=== PATIENT | male | born 1990 | race Caucasian/White ===

== ENCOUNTER 2016-08-11 15:25 | Emergency (ER) | payer BC ==
--- NOTE | 2016-08-11 16:04 | EDM.PDOC ---
ED HPI GENERAL MEDICAL PROBLEM - General Chief Complaint: Gastrointestinal Problem Stated Complaint: VOMITTING BLOOD Time Seen by Provider: 08/11/16 15:50 Source of Information: Reports: Patient History Limitations: Reports: No Limitations - History of Present Illness INITIAL COMMENTS - FREE TEXT/NARRATIVE: 25 yo male had vomiting and diarrhea this morning about 0600h. He has not had any of either since then. Thought the stuff that came up looked like dark blood. Ate pizza before bedtime which was in the middle of the night. Smokes 1/ 2 ppd and drinks on average 9 beers daily. No black or bloody stools. Has minimal abdominal pain persisting since this morning. No fever. Went to the clinic where he lives this afternoon and there were no openings so came here. Is on no regular meds. Does not recall having any substernal pain with his vomiting spell this morning. Onset: Today Onset Date: 08/11/16 Onset Time: 06:00 Duration: Hour(s):, Improving Location: Reports: Abdomen Quality: Reports: Dull Severity: Mild Improves with: Reports: Other (? 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) abdominal Pain Score (Numeric/FACES): 3 - Related Data Allergies Allergy/AdvReac Type Severity Reaction Status Date / Time No Known Allergies Allergy Verified 10/01/14 11:57 Home Meds: Home Meds Sucralfate [Carafate] 1 gm PO Q6HR #100 tab 08/11/16 [Rx] Past Medical History - Past Health History Medical/Surgical History: Denies Medical/Surgical History Other Immunologic History: MRSA Social & Family History - Family History Family Medical History: Noncontributory - Tobacco Use Smoking Status *Q: Never Smoker - Alcohol Use Days Per Week of Alcohol Use: 7 Number of Drinks Per Day: 9 Total Drinks Per Week: 63 - Recreational Drug Use Recreational Drug Use: Yes Recreational Drug Type: Reports: Cocaine, Ecstasy ED ROS GENERAL - Review of Systems Review Of Systems: See Below Constitutional: Reports: Malaise HEENT: Reports: No Symptoms Respiratory: Reports: No Symptoms Cardiovascular: Reports: No Symptoms Endocrine: Reports: No Symptoms GI/Abdominal: Reports: Abdominal Pain (mild), Diarrhea, Decreased Appetite, Hematemesis (? dark looking like blood), Nausea (no vomiting since 6 am), Vomiting. Denies: Black Stool, Bloody Stool, Constipation, Distension, Hematochezia, Stool Incontinence : Reports: No Symptoms Musculoskeletal: Reports: No Symptoms Skin: Reports: No Symptoms Neurological: Reports: No Symptoms Psychiatric: Reports: No Symptoms ED EXAM, GI/ABD - Physical Exam Exam: See Below Exam Limited By: No Limitations General Appearance: Alert, WD/WN, No Apparent Distress Eyes: Bilateral: Normal Appearance, EOMI Ears: Normal External Exam, Normal Canal, Hearing Grossly Normal, Normal TMs Nose: Normal Inspection, Normal Mucosa, No Blood Throat/Mouth: Normal Inspection, Normal Lips, Normal Oropharynx, Normal Voice, No Airway Compromise Head: Atraumatic, Normocephalic Neck: Normal Inspection, Supple Respiratory/Chest: No Respiratory Distress, Lungs Clear, Normal Breath Sounds, No Accessory Muscle Use Cardiovascular: Regular Rate, Rhythm, No Edema GI/Abdominal: Normal Bowel Sounds, Soft, No Distention, Tenderness (mild tenderness in region of McBurney's point. No epigastric pain.) Back Exam: Normal Inspection. No: CVA Tenderness (R), CVA Tenderness (L) Extremities: Normal Inspection, Normal Range of Motion, Non-Tender, No Pedal Edema Neurological: Alert, Oriented, CN II-XII Intact, No Motor/Sensory Deficits Psychiatric: Normal Affect, Normal Mood Skin Exam: Warm, Dry, Intact, Normal Color, No Rash Lymphatic: No Adenopathy Course - Vital Signs Text/Narrative:: Orthostatic vitals-borderline positive, asymptomatic with these postural changes. Maalox 30 ml po Last Recorded V/S: Last Vital Signs Temp 37.2 C 08/11/16 15:25 Pulse 100 08/11/16 15:25 Resp 16 08/11/16 15:25 BP 132/77 08/11/16 15:25 Pulse Ox 100 08/11/16 15:25 Orthostatic Blood Pressure [ 130/75 Standing] Orthostatic Blood Pressure [ 131/75 Sitting] Orthostatic Blood Pressure [ 160/90 Supine] - Orders/Labs/Meds Orders: Active Orders 24 hr Category Date Time Status Orthostatic Vital Signs [RC] ASDIRECTED Care 08/11/16 15:51 Active Labs: Laboratory Tests 08/11/16 Range/Units 16:10 WBC 6.8 (4.5-12.0) X10-3/uL RBC 5.21 (4.30-5.75) x10(6)uL Hgb 16.1 H (11.5-15.5) g/dL Hct 47.2 (30.0-51.3) % MCV 90.6 (80-96) fL MCH 30.8 (27.7-33.6) pg MCHC 34.0 (32.2-35.4) g/dL RDW 12.4 (11.5-15.5) % Plt Count 182 (125-369) X10(3)uL Meds: Medications Discontinued Medications Generic Name Dose Route Start Last Admin Trade Name Freq PRN Reason Stop Dose Admin Al Hydroxide/Mg Hydroxide 30 ml 08/11/16 16:07 08/11/16 16:23 Mag-Al Susp PO 08/11/16 16:08 30 ml NOW STA Administration Departure - Departure Time of Disposition: 16:35 Disposition: Home, Self-Care 01 Condition: fair Clinical Impression: Tobacco abuse, Alcohol abuse Gastritis Qualifiers: Gastritis type: alcoholic Chronicity: acute Gastritis bleeding: with bleeding Qualified Code(s): K29.21 - Alcoholic gastritis with bleeding - Discharge Information Prescriptions: Sucralfate [Carafate] 1 gm PO Q6HR #100 tab Forms: ED Department Discharge - My Orders Last 24 Hours: My Active Orders 08/11/16 15:51 Orthostatic Vital Signs [RC] ASDIRECTED - Assessment/Plan Last 24 Hours: My Active Orders 08/11/16 15:51 Orthostatic Vital Signs [RC] ASDIRECTED
[2016-08-11] MEDS ORDERED: Aluminum Hydroxide/Magnesium Hydroxide Susp 30 ML Cup PO STA (16:07)
[2016-08-11 16:45] VITALS: BP 121/75
== END 2016-08-11 16:40 | disposition home or self-care (01) ==
LOC: FB.ED 15:25
DX: K29.21 Alcoholic gastritis with bleeding (principal); F10.10 Alcohol abuse, uncomplicated; F17.210 Nicotine dependence, cigarettes, uncomplicated
CPT/HCPCS: 36415; 85027; 99284; A9270

== ENCOUNTER 2017-09-01 01:58 | Emergency (ER) | payer BC ==
--- NOTE | 2017-09-01 02:46 | EDM.PDOC ---
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 There is R eye pain, photophobia, excessive tearing, and blurred vision. The L eye is asx. He has tried no meds. - Related Data Allergies Allergy/AdvReac Type Severity Reaction Status Date / Time No Known Allergies Allergy Verified 09/01/17 02:10 Home Meds: Home Meds NK [No Known Home Meds] 09/01/17 [History] Past Medical History - Past Health History Medical/Surgical History: Denies Medical/Surgical History Other Immunologic History: MRSA Social & Family History - Family History Family Medical History: Noncontributory - Tobacco Use Smoking Status *Q: Current Every Day Smoker Years of Tobacco use: 3 Packs/Tins Daily: 0.5 - Caffeine Use Caffeine Use: Reports: Coffee - Alcohol Use Days Per Week of Alcohol Use: 7 Number of Drinks Per Day: 5 Total Drinks Per Week: 35 - Recreational Drug Use Recreational Drug Use: Yes Drug Use in Last 12 Months: Yes Recreational Drug Type: Reports: Marijuana/Hashish ED ROS GENERAL - Review of Systems Review Of Systems: ROS reveals no pertinent complaints other than HPI. ED EXAM GENERAL W FULL EYE - Physical Exam Exam: See Below Exam Limited By: No Limitations General Appearance: Alert, WD/WN, Mild Distress Eye Exam: Right Eye: Abnormal Pupil (corneal abrasion ), Conjunctival Injection , Corneal Abrasion (lower corneal margin), Left Eye: Normal Inspection, Bilateral Eye: EOMI, Normal Fundi, PERRL Visual Acuity (R) 20/: 30 Visual Acuity (L) 20/: 20 Eyelids: Bilateral: Normal Appearance Conjunctiva & Sclera: Right: Injected, Left: Normal Appearance Cornea Exam: Right: Corneal Abrasion, Examined with Flourescein, Left: Normal Appearance Extraocular Movements: Bilateral: Intact Pupils: Normal Accommodation Pupillary Size: Bilateral: 5 mm Pupillary Reaction: Right: Sluggish, Left: Brisk Anterior Chamber: Bilateral: Normal Appearance Posterior Chamber: Bilateral: Normal Funduscopic Ears: Normal External Exam Nose: Normal Inspection Throat/Mouth: Normal Inspection, Normal Oropharynx Head: Normocephalic Neck: Normal Inspection Respiratory/Chest: Lungs Clear Cardiovascular: Regular Rate, Rhythm Back Exam: Normal Inspection Extremities: Normal Inspection Neurological: Alert, Oriented, CN II-XII Intact, Normal Cognition, Normal Gait, No Motor/Sensory Deficits Psychiatric: Normal Affect, Normal Mood Skin Exam: Warm, Dry, Intact Lymphatic: No Adenopathy Course - Vital Signs Text/Narrative:: The R eye was inspected utilizing 0.5% tetracaine oph gtts. NeoPolyBac Oph Oint was instilled after exam, and the lid closed with paper tape. Patient tolerated exam well. Last Recorded V/S: Last Vital Signs Temp 36.7 C 09/01/17 01:58 Pulse 102 H 09/01/17 01:58 Resp 18 09/01/17 01:58 BP 119/80 09/01/17 01:58 Pulse Ox 100 09/01/17 01:58 Departure - Departure Time of Disposition: 02:45 Disposition: Home, Self-Care 01 Condition: Fair Clinical Impression: Right cornea abrasion Qualifiers: Encounter type: initial encounter Qualified Code(s): S05.01XA - Injury of conjunctiva and corneal abrasion without foreign body, right eye, initial encounter - Discharge Information Instructions: Corneal Abrasion, [id number] Referrals: PCP,None [Primary Care Provider] - Forms: ED Department Discharge Additional Instructions: please ibuprofen for pain avoid light, rest your eye please see your eye doctor or your primary care doctor before you return to work. 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 Qualifiers: Encounter type: initial encounter Qualified Code(s): S05.01XA - Injury of conjunctiva and corneal abrasion without foreign body, right eye, initial encounter - Problem List Review Problem List Initiated/Reviewed/Updated: Yes - Assessment/Plan Plan: Follow up with PCP or OD.
[2017-09-01 02:55] VITALS: BP 126/85
== END 2017-09-01 02:44 | disposition home or self-care (01) ==
LOC: FB.ED 01:58
DX: S05.01XA Injury of conjunctiva and corneal abrasion without foreign body, right eye, initial encounter (principal); F17.210 Nicotine dependence, cigarettes, uncomplicated; W22.8XXA Striking against or struck by other objects, initial encounter
CPT/HCPCS: 99283